=== PATIENT | male | born 1945 | race African-American/Black ===

== ENCOUNTER 2017-09-26 07:40 | Inpatient (IN) | payer MEDICARE, BC ==
[~2017-09-26] VITALS: Ht 175.3 cm; Wt 82.8 kg
[2017-09-26] MEDS ORDERED: MORPHINE SULFATE INJ 4 MG/ML INJ IV STA (07:41)
[2017-09-26] MEDS ORDERED: ONDANSETRON HCL INJ 2 MG/ML VIAL IV STA ×2 (07:41)
[2017-09-26] MEDS ORDERED: PANTOPRAZOLE 40 MG 10ML VIAL IV STA (07:41)
[2017-09-26] MEDS ORDERED: SODIUM CHLORIDE 0.9% 1000ML 1,000 ML IV STA (07:41)
[2017-09-26] MEDS ORDERED: ASPIRIN 81 MG CHEW TAB PO ONE (07:45)
[2017-09-26 08:13] LABS: BASOPHILS % 0.1 % (0.0-1.0); EOSINOPHILS % 0.1 % (0.0-6.0); HEMATOCRIT 36.6 % (38.2-49.6); HEMOGLOBIN 12.5 g/dL (14.0-18.0); LYMPHOCYTES # (AUTO) 0.8 (1.0-3.2); LYMPHOCYTES % 4.8 % (18.0-39.1); MEAN CORPUSCULAR HGB CONC 34.2 g/dL (31-35); MONOCYTES # (AUTO) 0.9 (0.2-0.8); MONOCYTES % 5.7 % (4.4-11.3); NEUTROPHILS # (AUTO) 14.1 (2.1-6.9); NEUTROPHILS % 88.9 % (38.7-80.0); PLATELET COUNT 263 x10e3/uL (140-360); RED BLOOD COUNT 4.16 x10e6/uL (4.3-5.7); RED CELL DISTRIBUTION WIDTH 13.1 % (11.7-14.4)
[2017-09-26 08:25] LABS: INR 1.14; PARTIAL THROMBOPLASTIN TIME 22.4 seconds (23.8-35.5); PROTHROMBIN TIME 13.7 seconds (11.9-14.5)
[2017-09-26 08:34] LABS: ALBUMIN 4.4 g/dL (3.5-5.0); ALBUMIN/GLOBULIN RATIO 1.4 (0.8-2.0); ANION GAP 17.2 mmol/L (8-16); CREATININE, SERUM 1.96 mg/dL (0.72-1.25); POTASSIUM 4.2 mmol/L (3.5-5.1)
[2017-09-26 08:40] LABS: CREATINE KINASE MB 4.8 ng/mL (0-5.0)
[2017-09-26] MEDS ORDERED: DIATRIZOATE MEGL/DIATRIZOA SOD 30 ML BTL PO ONE (08:43)
[2017-09-26] MEDS ORDERED: METRONIDAZOLE 500MG/NS 100ML 100 ML IV STA (08:46)
--- NOTE | 2017-09-26 08:47 | Diagnostic Imaging Report ---
PROCEDURE: CHEST SINGLE (PORTABLE) COMPARISON: None. INDICATIONS: VOMITING, ABDOMEN PAIN FINDINGS: LUNGS: No consolidations or edema. PLEURA: No effusions or pneumothorax. HEART \T\ MEDIASTINUM: The heart is within normal size-limits. BONES \T\ SOFT TISSUES: No acute findings. No free air beneath the diaphragms. CONCLUSION: No acute thoracic abnormality. Rod Murillo D.O. Dictated by: Rod Murillo D.O. on 09/26/2017 at 8:52 Electronically approved by: Rod Murillo D.O. on 09/26/2017 at 8:52
[2017-09-26] MEDS: CEFEPIME HCL 1 GM VIAL IV SCH ×2 (09:05→21:00)
[2017-09-26 09:27] LABS: CLARITY,URINE CLEAR (CLEAR); COLOR,URINE YELLOW (YELLOW); LEUKOCYTE ESTERASE ,URINE NEGATIVE (NEGATIVE); NITRITE,URINE NEGATIVE (NEGATIVE); PROTEIN,URINE DIPSTICK NEGATIVE (NEGATIVE)
[2017-09-26 09:28] LABS: BILIRUBIN,URINE NEGATIVE (NEGATIVE); KETONES,URINE NEGATIVE (NEGATIVE); URINE UROBILINOGEN 0.2 mg/dL (0.2 - 1)
[2017-09-26 09:40] LABS: EPITHELIAL CELLS,URINE RARE /LPF
--- NOTE | 2017-09-26 10:08 | Diagnostic Imaging Report ---
PROCEDURE: CT ABDOMEN AND PELVIS WITH CONTRAST TECHNIQUE: The abdomen and pelvis were scanned utilizing a multidetector helical scanner from the diaphragm to the lesser trochanter after the IV administration of 100 cc of Isovue 370 and the oral administration of water. Coronal and sagittal multiplanar reformations were obtained. DLP: 494.07 mGy-cm COMPARISON: None. INDICATIONS: UMBILICAL PAIN AND VOMITING FINDINGS: LOWER THORAX: Normal. HEPATOBILIARY: No focal hepatic lesions. No biliary ductal dilatation. The gallbladder is absent. SPLEEN: No splenomegaly. PANCREAS: No focal masses or ductal dilatation. ADRENALS: No adrenal nodules. KIDNEYS/URETERS: No hydronephrosis, stones, or solid mass lesions. There is a 2.1 cm right upper pole renal cyst. PELVIC ORGANS/BLADDER: Unremarkable. PERITONEUM / RETROPERITONEUM: No free air or fluid. LYMPH NODES: No lymphadenopathy. VESSELS: Mild atherosclerotic vascular calcification. All of the visceral vessels are patent. GI TRACT: Small bowel distention with a bilateral inguinal hernia with loops of bowel present within each scrotal sac. The largest is on the left side. BONES AND SOFT TISSUES: Disc space narrowing at L3-L4 and L4-L5. IMPRESSION: 1. Bilateral inguinal hernias with loops of small bowel within each hernia sac. 2. Left hernia is larger than the right with significant amount of small bowel present within it. 3. Normal appearing terminal ileum and appendix. 4. Small bowel obstruction resulting from the inguinal hernias. Rod Murillo D.O. Dictated by: Rod Murillo D.O. on 09/26/2017 at 10:13 Electronically approved by: Rod Murillo D.O. on 09/26/2017 at 10:13
[2017-09-26] MEDS ORDERED: SODIUM CHLORIDE 0.9% 1000ML 1,000 ML IV SCH (11:20)
[2017-09-26] MEDS ORDERED: SODIUM CHLORIDE 0.9% 50ML 50 ML ONE (11:26)
[2017-09-26] MEDS ORDERED: IOPAMIDOL 370 MG/ML 200 ML INFUS..BTL INJ ONE (11:26)
[2017-09-26 14:20] VITALS: BP 152/74
[2017-09-26] MEDS ORDERED: PRAVASTATIN SOD40 MG PO (15:25)
[2017-09-26] MEDS ORDERED: AMLODIPINE BESYL5 MG PO (15:25)
[2017-09-26] MEDS ORDERED: LOSARTAN POTAS100 MG PO (15:25)
[2017-09-26] MEDS ORDERED: PIOGLITAZONE HC45 MG PO (15:25)
[2017-09-26] MEDS ORDERED: LEVOTHYROXINE150 MCG PO (15:25)
[2017-09-26] MEDS ORDERED: GLIMEPIRIDE2 MG PO (15:25)
[2017-09-26] MEDS ORDERED: HYDRALAZINE HCL 10 MG TAB PO PRN (15:30)
[2017-09-26] MEDS ORDERED: DEXTROSE 50% SYRINGE 50 ML IV PRN (15:30)
[2017-09-26] MEDS: DEXTROSE 5%/0.45% SOD CHL 1,000 ML IV SCH (15:43)
[2017-09-26 16:02] VITALS: BP 136/65
[2017-09-26] MEDS: INSULIN REGULAR, HUMAN 100 UNIT/1 ML 3ML VIAL SQ SCH ×2 (16:30→20:59)
[2017-09-26] MEDS: MORPHINE SULFATE 2 MG/ML SYR IV PRN (16:55)
--- NOTE | 2017-09-26 18:56 | History and Physical ---
CHIEF COMPLAINT: This 72-year-old male comes in with abdominal pain. HISTORY OF PRESENTING ILLNESS: This is Mr. Vásquez, who has a history of diabetes mellitus, hypertension and hyperlipidemia, was in usual state of health until about a week ago the patient developed abdominal pain which was more inguinal, did notice some bulging in the abdominal area but did not make much of it, but a day ago the patient's abdominal pain started to be intense and nonradiating, associated with nausea, and the patient localized the pain to the periumbilical area and also to the inguinal area. The patient came into the emergency room, was admitted for an incarcerated inguinal hernia. PAST MEDICAL HISTORY: As mentioned above. History of hypertension, history of hyperlipidemia, history of diabetes mellitus. MEDICINES HE TAKES AT HOME: Amlodipine besylate 5 mg daily. Glimepiride 2 mg twice a day. Levothyroxine 150 mcg tablets daily. Losartan 100 mg tablets daily. Pioglitazone 45 mg tablets daily. Lovastatin 40 mg daily. PAST SURGICAL HISTORY: History of a right-sided cholecystectomy and open ok. SOCIAL HISTORY: No ETOH. No IV drug abuse. REVIEW OF SYSTEMS: No chest pain. No shortness of breath. Positive for nausea, no vomiting, no diarrhea. No constipation, no rectal bleeding. No hematochezia, no hematemesis. No blurry vision. No black stools, no bloody stools. No dizziness, no headache. No depression, anxiety. No anorexia. Positive for abdominal pain as mentioned above. INCOMPLETE REPORT Job#: [id number] EV
[2017-09-26 21:07] VITALS: BP 124/60
[2017-09-26] MEDS: ONDANSETRON HCL INJ 2 MG/ML VIAL IV PRN (21:30)
[2017-09-27] VITALS (7 sets, daily range): BP systolic 127–169; BP diastolic 60–81
[2017-09-27] MEDS: DEXTROSE 5%/0.45% SOD CHL 1,000 ML IV SCH (00:43)
[2017-09-27] MEDS: MORPHINE SULFATE 2 MG/ML SYR IV PRN ×2 (01:39→11:00)
[2017-09-27 05:20] LABS: BASOPHILS % 0.2 % (0.0-1.0); EOSINOPHILS % 0.2 % (0.0-6.0); HEMOGLOBIN 11.1 g/dL (14.0-18.0); LYMPHOCYTES # (AUTO) 0.5 (1.0-3.2); LYMPHOCYTES % 11.4 % (18.0-39.1); MEAN CORPUSCULAR HEMOGLOBIN 30.2 pg (28-32); MEAN CORPUSCULAR HGB CONC 33.6 g/dL (31-35); MEAN CORPUSCULAR VOLUME 89.7 fL (81-99); MONOCYTES # (AUTO) 0.8 (0.2-0.8); MONOCYTES % 16.1 % (4.4-11.3); NEUTROPHILS # (AUTO) 3.4 (2.1-6.9); NEUTROPHILS % 71.9 % (38.7-80.0); PLATELET COUNT 197 x10e3/uL (140-360); RED BLOOD COUNT 3.68 x10e6/uL (4.3-5.7); RED CELL DISTRIBUTION WIDTH 13.3 % (11.7-14.4)
[2017-09-27 05:48] LABS: ANION GAP 13.7 mmol/L (8-16); CALCIUM 8.6 mg/dL (8.4-10.2); CREATININE, SERUM 1.57 mg/dL (0.72-1.25); MAGNESIUM 1.7 MG/DL (1.3-2.1); POTASSIUM 4.7 mmol/L (3.5-5.1)
[2017-09-27] MEDS ORDERED: NON-FORMULARY MEDICATION (Levothyroxine Sodium 150 MCG) PO SCH (06:00)
[2017-09-27] MEDS: LEVOTHYROXINE SODIUM 75 MCG TAB PO SCH (06:14)
[2017-09-27] MEDS: INSULIN REGULAR, HUMAN 100 UNIT/1 ML 3ML VIAL SQ SCH ×4 (07:30→21:00)
[2017-09-27] MEDS: SODIUM CHLORIDE 0.9% 1000ML 1,000 ML IV SCH ×3 (07:47→23:43)
[2017-09-27] MEDS: CEFEPIME HCL 1 GM VIAL IV SCH (08:56)
[2017-09-27 09:06] LABS: BAND NEUTROPHILS % (MANUAL) 13 %; LYMPHOCYTES % (MANUAL) 16 % (19-48); MONOCYTES % (MANUAL) 14 % (3.4-9.0); NEUTROPHILS % (MANUAL) 56 % (40-74)
[2017-09-27 09:09] LABS: ANISOCYTOSIS SLIGHT; PLATELET ESTIMATE ADEQUATE; PLATELET MORPHOLOGY COMMENT FEW LARGE; RBC MORPHOLOGY COMMENT NORMAL
[2017-09-27] MEDS: ONDANSETRON HCL INJ 2 MG/ML VIAL IV PRN (11:00)
[2017-09-27] MEDS ORDERED: BUPIVACAINE 0.25%/EPI 30ML SDV INJ ONE (13:44)
[2017-09-27] MEDS ORDERED: HYDROGEN PEROXIDE 120 ML BTL ONE (13:44)
[2017-09-27] MEDS ORDERED: MIDAZOLAM HCL 2 MG/2 ML VIAL ONE (14:21)
[2017-09-27] MEDS ORDERED: FENTANYL CITRATE/PF 100MCG/2 ML INJ ONE (14:21)
[2017-09-27] MEDS ORDERED: BACITRACIN 50,000 UNIT VIAL ONE ×2 (14:58→16:41)
[2017-09-27] MEDS ORDERED: MORPHINE SULFATE INJ 4 MG/ML INJ IV PRN (16:00)
[2017-09-27] MEDS ORDERED: BUPIVACAINE LIPOSOME/PF 266 MG/20 ML IJ ONE (17:26)
[2017-09-27] MEDS ORDERED: SEVOFLURANE INHAL SOLN 250 ML PEN BTL ONE (17:33)
[2017-09-27] MEDS ORDERED: ROCURONIUM BROMIDE 10 MG/ML 5ML VIAL ONE (17:33)
[2017-09-27] MEDS ORDERED: PROPOFOL IV EMULSION 10 MG/ML 20 ML VIAL ONE (17:33)
[2017-09-27] MEDS ORDERED: LABETALOL HCL 5 MG/ML 20ML VIAL ONE (17:33)
[2017-09-27] MEDS ORDERED: DEXAMETHASONE SOD PHOS INJ 4 MG/ML VIAL ONE (17:33)
[2017-09-27] MEDS ORDERED: CEFAZOLIN SOD 1 GM VIAL ONE (17:33)
[2017-09-27] MEDS ORDERED: NEOSTIGMINE 5 MG/5ML SYR ONE (17:33)
[2017-09-27] MEDS ORDERED: LIDOCAINE HCL 2% LOCAL INJ 5 ML SDV VIAL INJ ONE (17:33)
[2017-09-27] MEDS ORDERED: GLYCOPYRROLATE INJ 1MG/ 5 ML SYR ONE (17:33)
[2017-09-27] MEDS ORDERED: ONDANSETRON HCL INJ 2 MG/ML VIAL ONE (17:33)
[2017-09-27] MEDS ORDERED: HYDROMORPHONE 0.2MG/ML-SOD CHL 30ML PCA SYRINGE IV ONE (18:36)
[2017-09-27] MEDS ORDERED: HYDROMORPHONE 0.2MG/ML-SOD CHL 30ML PCA SYRINGE IV PRN (18:45)
[2017-09-27] MEDS ORDERED: NALOXONE HCL INJ 0.4 MG/ML AMP IV PRN (18:45)
[2017-09-27] MEDS ORDERED: KETOROLAC TROMETHAMINE 30 MG/ML VIAL IV PRN (18:45)
[2017-09-27] MEDS ORDERED: DIPHENHYDRAMINE HCL INJ 50 MG/ML VIAL IM PRN (18:45)
--- NOTE | 2017-09-27 19:46 | Operative Report ---
DATE OF PROCEDURE: September 27, 2017 PREOPERATIVE DIAGNOSIS: Incarcerated left inguinal scrotal hernia with obstruction. POSTOPERATIVE DIAGNOSIS: Incarcerated left inguinal scrotal hernia with obstruction. PROCEDURES PERFORMED: 1. Exploration of the right groin. 2. Exploration of the left groin. 3. Left orchiectomy. 4. Small bowel resection with primary susannah [id number], end-to-end functional anastomosis. EQUITY RESEARCH ASSOCIATE: None. ESTIMATED BLOOD LOSS: Minimal. DRAINS: None. COMPLICATIONS: None. INDICATIONS AND FINDINGS: The patient is a 72-year-old male admitted through the emergency complaining of abdominal pain since the day prior to admission associated with vomiting. CT scan had revealed small bowel obstruction, secondary incarcerated left groin hernia. I saw the patient in the emergency room and I was able to reduce a loop of bowel that was causing the obstruction. However, at this point the patient did not have any more significant pain. He was stabilized and taken urgently to the operating room on 09/27/2017 for exploration of right groin and repair of incarcerated inguinal scrotal hernia. INTRAOPERATIVE FINDINGS: The patient had a large left inguinal scrotal hernia with incarceration of bowel loops within a scrotal sac. There was a segment of small bowel that was fibrotic, and even though it was viable, I was concerned about the possibility of an obstruction in the future with fibrosis and stricture formation and I decided to perform repair with resection and primary repair of the hernia. DESCRIPTION OF PROCEDURE: With the patient lying on the operating table in the supine position after administration of general endotracheal anesthesia, he was prepped and draped for left groin exploration and possible laparotomy. A preemptive anesthesia was given of 0. 25% Marcaine with epinephrine as an incisional nerve block. A transverse groin incision was made and deepened through skin, subcutaneous tissue until the hernia was identified. The hernia extended through the external ring all the way down to the bottom of the scrotum, and after we then incised the external oblique aponeurosis, transecting the external ring, we then applied pressure to the scrotum and then began the dissection and the reduction of the hernia by putting pressure on the scrotum and delivered the testicle into the operative field along with the hernia sac. At this point, we continued the dissection on the large hernia sac, which contained bowel loops so that we could then dissect it free from the adhesions to the preperitoneal space to be able to resect it. The cord was intimately attached to the sac and it was decided on this 72-year-old diabetic male to go ahead and proceed with an orchiectomy rather than risk the possibility of an orchitis with subsequent chronic pain and atrophy of the testicle both on the same side as well as the opposite side. I broke scrub and informed the patient's of the need for the orchiectomy and she agreed and gave me verbal consent. Yuliana was witness to this verbal consent. After we did that, we continued the dissection. We mobilized the sac as well as the testicle and then highly ligated the cord with 2-0 Vicryl and left it attached to the sac. Then we continued the dissection of the sac until we were able to mobilize the contents, opened the hernia sac, which was very large. We then began the dissection within the sac. We did not find any necrotic bowel. The loop of bowel which I reduced was most likely causing the obstruction upon admission which resolved with reduction. However, we found a loop of bowel that was intimately attached to the sac and as previously described on the operative findings it was fibrotic and appeared to have a strictured lumen. At this point, I decided to go ahead and resect that bowel and about 10 to 12 inches of small bowel was transected proximally and distally including the fibrotic segment in the middle, and then we obtained two proximal and distal segments that were suitable for anastomosis. Then we performed a [id number]-[id number], end-to-end functional anastomosis by firing the LAWANDA 75 stapler after we had cut both ends of the small bowel proximally and distally with a LAWANDA stapler also. After we did the [id number]-ci-[id number] anastomosis, functional end-to-end by firing of the LAWANDA 75 stapler to anastomose the two sides of the bowel, then we closed the rent by firing the TA 60 with the blue load. Then we reinforced the staple line with 3-0 silk. We closed the rent in the mesentery with running 2-0 Vicryl. After pronouncing the sponge and instrument counts were correct, we began the repair. We performed a Bassini type of repair by running an 0 Prolene beginning at the pubic tubercle all the way up to the internal ring and then run it back to itself and tied there, and then we began a 2nd layer beginning in the internal ring using the same 0 Prolene stitches imbricating the previous repair and then terminated the suture line at the internal ring where it had begun in the opposite direction of the previous repair. After we did that, then we closed the soft tissues in 2 layers to add some type of substance and to obliterate any space using a combination of 2-0 Vicryl, 0 chromic catgut and 2-0 Vicryl for the subcuticular planes and the skin was closed using susannah. A sterile dressing was applied. The patient tolerated the procedure well, taken to recovery room in stable condition. The was informed of intraoperative findings. Job#: [id number] VIDYA
[2017-09-27] MEDS: PANTOPRAZOLE 40 MG 10ML VIAL IV SCH (21:01)
[2017-09-27] MEDS: SODIUM CHLORIDE 0.9% 250ML IRRIG IR SCH (22:45)
[2017-09-27] MEDS: CEFOXITIN SOD 1 GM VIAL IV SCH (23:43)
[2017-09-28] VITALS (7 sets, daily range): BP systolic 131–160; BP diastolic 63–72
[2017-09-28] MEDS ORDERED: CEFOXITIN 1GM/ DEXTROSE 50ML 50 ML IV SCH
[2017-09-28] MEDS: SODIUM CHLORIDE 0.9% 250ML IRRIG IR SCH ×6 (02:45→22:45)
[2017-09-28] MEDS: LEVOTHYROXINE SODIUM 75 MCG TAB PO SCH (05:13)
[2017-09-28] MEDS: CEFOXITIN SOD 1 GM VIAL IV SCH ×4 (05:13→23:19)
[2017-09-28 05:55] LABS: BASOPHILS % 0.1 % (0.0-1.0); HEMATOCRIT 31.2 % (38.2-49.6); HEMOGLOBIN 10.2 g/dL (14.0-18.0); LYMPHOCYTES # (AUTO) 0.4 (1.0-3.2); LYMPHOCYTES % 6.4 % (18.0-39.1); MEAN CORPUSCULAR HEMOGLOBIN 29.7 pg (28-32); MEAN CORPUSCULAR HGB CONC 32.7 g/dL (31-35); MONOCYTES # (AUTO) 0.9 (0.2-0.8); MONOCYTES % 12.5 % (4.4-11.3); NEUTROPHILS # (AUTO) 5.6 (2.1-6.9); NEUTROPHILS % 80.6 % (38.7-80.0); PLATELET COUNT 205 x10e3/uL (140-360); RED BLOOD COUNT 3.43 x10e6/uL (4.3-5.7); RED CELL DISTRIBUTION WIDTH 13.2 % (11.7-14.4)
[2017-09-28 06:21] LABS: CREATININE, SERUM 1.66 mg/dL (0.72-1.25)
[2017-09-28] MEDS: INSULIN REGULAR, HUMAN 100 UNIT/1 ML 3ML VIAL SQ SCH ×4 (07:30→21:00)
[2017-09-28 08:40] LABS: BAND NEUTROPHILS % (MANUAL) 13 %; LYMPHOCYTES % (MANUAL) 4 % (19-48); MONOCYTES % (MANUAL) 8 % (3.4-9.0); NEUTROPHILS % (MANUAL) 69 % (40-74); PLATELET ESTIMATE ADEQUATE; PLATELET MORPHOLOGY COMMENT NORMAL; RBC MORPHOLOGY COMMENT NORMAL
[2017-09-28] MEDS: SODIUM CHLORIDE 0.9% 1000ML 1,000 ML IV SCH ×2 (13:15→20:46)
[2017-09-28] MEDS: PANTOPRAZOLE 40 MG 10ML VIAL IV SCH (17:48)
[2017-09-29] VITALS (7 sets, daily range): BP systolic 147–160; BP diastolic 66–74
[2017-09-29] MEDS: SODIUM CHLORIDE 0.9% 250ML IRRIG IR SCH ×6 (02:45→22:45)
[2017-09-29 05:13] LABS: BASOPHILS % 0.2 % (0.0-1.0); HEMATOCRIT 28.3 % (38.2-49.6); HEMOGLOBIN 9.4 g/dL (14.0-18.0); LYMPHOCYTES # (AUTO) 0.8 (1.0-3.2); LYMPHOCYTES % 8.7 % (18.0-39.1); MEAN CORPUSCULAR HEMOGLOBIN 29.7 pg (28-32); MEAN CORPUSCULAR HGB CONC 33.2 g/dL (31-35); MEAN CORPUSCULAR VOLUME 89.6 fL (81-99); MONOCYTES % 11.3 % (4.4-11.3); NEUTROPHILS % 79.1 % (38.7-80.0); PLATELET COUNT 196 x10e3/uL (140-360); RED BLOOD COUNT 3.16 x10e6/uL (4.3-5.7); RED CELL DISTRIBUTION WIDTH 13.3 % (11.7-14.4)
[2017-09-29 05:34] LABS: ANION GAP 11.4 mmol/L (8-16); CALCIUM 8.3 mg/dL (8.4-10.2); CREATININE, SERUM 1.53 mg/dL (0.72-1.25); POTASSIUM 4.4 mmol/L (3.5-5.1)
[2017-09-29] MEDS: CEFOXITIN SOD 1 GM VIAL IV SCH ×4 (05:35→23:03)
[2017-09-29] MEDS: LEVOTHYROXINE SODIUM 75 MCG TAB PO SCH (05:35)
[2017-09-29 06:25] LABS: LYMPHOCYTES % (MANUAL) 8 % (19-48); MONOCYTES % (MANUAL) 10 % (3.4-9.0); NEUTROPHILS % (MANUAL) 82 % (40-74); PLATELET ESTIMATE ADEQUATE; PLATELET MORPHOLOGY COMMENT NORMAL; RBC MORPHOLOGY COMMENT NORMAL
[2017-09-29] MEDS: INSULIN REGULAR, HUMAN 100 UNIT/1 ML 3ML VIAL SQ SCH ×4 (07:30→21:00)
[2017-09-29] MEDS: SODIUM CHLORIDE 0.9% 1000ML 1,000 ML IV SCH ×2 (09:15→23:00)
[2017-09-29] MEDS: PANTOPRAZOLE 40 MG 10ML VIAL IV SCH (18:45)
[2017-09-30] VITALS (7 sets, daily range): BP systolic 128–161; BP diastolic 61–74
[2017-09-30] MEDS: SODIUM CHLORIDE 0.9% 250ML IRRIG IR SCH ×3 (02:45→10:45)
[2017-09-30 05:56] LABS: BASOPHILS % 0.2 % (0.0-1.0); EOSINOPHILS % 0.2 % (0.0-6.0); HEMATOCRIT 25.9 % (38.2-49.6); HEMOGLOBIN 8.5 g/dL (14.0-18.0); LYMPHOCYTES # (AUTO) 0.8 (1.0-3.2); MEAN CORPUSCULAR HEMOGLOBIN 29.9 pg (28-32); MEAN CORPUSCULAR HGB CONC 32.8 g/dL (31-35); MEAN CORPUSCULAR VOLUME 91.2 fL (81-99); MONOCYTES # (AUTO) 0.9 (0.2-0.8); MONOCYTES % 9.9 % (4.4-11.3); NEUTROPHILS # (AUTO) 7.1 (2.1-6.9); NEUTROPHILS % 79.7 % (38.7-80.0); PLATELET COUNT 185 x10e3/uL (140-360); RED BLOOD COUNT 2.84 x10e6/uL (4.3-5.7); RED CELL DISTRIBUTION WIDTH 13.5 % (11.7-14.4)
[2017-09-30] MEDS: LEVOTHYROXINE SODIUM 75 MCG TAB PO SCH (06:00)
[2017-09-30] MEDS: CEFOXITIN SOD 1 GM VIAL IV SCH ×4 (06:00→23:02)
[2017-09-30 06:12] LABS: ANION GAP 13.2 mmol/L (8-16); CALCIUM 8.7 mg/dL (8.4-10.2); CREATININE, SERUM 1.58 mg/dL (0.72-1.25); POTASSIUM 4.2 mmol/L (3.5-5.1)
[2017-09-30] MEDS: INSULIN REGULAR, HUMAN 100 UNIT/1 ML 3ML VIAL SQ SCH ×4 (07:30→21:00)
[2017-09-30] MEDS ORDERED: HYDROMORPHONE 0.2MG/ML-SOD CHL 30ML PCA SYRINGE IV PRN (08:00)
[2017-09-30] MEDS: DEXTROSE 5%/0.45% SOD CHL 1,000 ML IV SCH ×3 (08:30→23:24)
[2017-09-30] MEDS ORDERED: HYDROCODONE/APAP 5MG-325MG TAB PO PRN (08:30)
[2017-09-30] MEDS ORDERED: POTASSIUM CHLORIDE 20 MEQ TAB CR PO ONE ×2 (11:30→13:30)
[2017-09-30] MEDS ORDERED: HYDROCODONE/APAP 7.5MG-325MG 1 EA TAB PO PRN (18:15)
[2017-09-30] MEDS: PANTOPRAZOLE 40 MG 10ML VIAL IV SCH (18:45)
[2017-09-30] MEDS: HYDROMORPHONE 1MG/1ML INJ IV PRN (21:34)
[2017-09-30] MEDS ORDERED: LEVOTHYROXINE SODIUM 100 MCG TAB PO ONE (21:45)
[2017-10-01] VITALS (8 sets, daily range): BP systolic 134–166; BP diastolic 60–77
[2017-10-01] MEDS: LEVOTHYROXINE SODIUM 75 MCG TAB PO SCH (05:04)
[2017-10-01] MEDS: CEFOXITIN SOD 1 GM VIAL IV SCH ×3 (05:04→17:48)
[2017-10-01 06:00] LABS: BASOPHILS % 0.4 % (0.0-1.0); EOSINOPHILS # (AUTO) 0.1 (0.0-0.4); EOSINOPHILS % 0.8 % (0.0-6.0); HEMATOCRIT 26.6 % (38.2-49.6); HEMOGLOBIN 8.7 g/dL (14.0-18.0); LYMPHOCYTES # (AUTO) 0.9 (1.0-3.2); LYMPHOCYTES % 10.9 % (18.0-39.1); MEAN CORPUSCULAR HEMOGLOBIN 29.7 pg (28-32); MEAN CORPUSCULAR HGB CONC 32.7 g/dL (31-35); MEAN CORPUSCULAR VOLUME 90.8 fL (81-99); NEUTROPHILS # (AUTO) 6.2 (2.1-6.9); NEUTROPHILS % 74.4 % (38.7-80.0); PLATELET COUNT 177 x10e3/uL (140-360); RED BLOOD COUNT 2.93 x10e6/uL (4.3-5.7); RED CELL DISTRIBUTION WIDTH 13.4 % (11.7-14.4)
[2017-10-01 06:19] LABS: ANION GAP 11.1 mmol/L (8-16); CALCIUM 8.6 mg/dL (8.4-10.2); CREATININE, SERUM 1.8 mg/dL (0.72-1.25); POTASSIUM 4.1 mmol/L (3.5-5.1)
[2017-10-01 06:38] LABS: CALCIUM IONIZED 1.2 mmol/L (1.09-1.30)
[2017-10-01 06:59] LABS: MAGNESIUM 1.7 MG/DL (1.3-2.1)
[2017-10-01] MEDS: INSULIN REGULAR, HUMAN 100 UNIT/1 ML 3ML VIAL SQ SCH ×4 (07:30→20:54)
[2017-10-01] MEDS: LOSARTAN POTASSIUM 100 MG TAB PO SCH (08:33)
[2017-10-01] MEDS: PIOGLITAZONE HCL 15 MG TAB PO SCH (08:33)
[2017-10-01] MEDS: GLIMEPIRIDE 2 MG TAB PO SCH ×2 (08:33→16:30)
[2017-10-01] MEDS: AMLODIPINE BESYLATE 5 MG TAB PO SCH (08:34)
[2017-10-01] MEDS: HYDROMORPHONE 1MG/1ML INJ IV PRN ×2 (09:51→18:41)
[2017-10-01] MEDS: DEXTROSE 5%/0.45% SOD CHL 1,000 ML IV SCH (10:30)
[2017-10-01] MEDS: HYDRALAZINE HCL 20 MG/ML VIAL IV PRN (16:30)
[2017-10-01] MEDS: PANTOPRAZOLE 40 MG 10ML VIAL IV SCH (17:48)
[2017-10-01] MEDS: SODIUM CHLORIDE 0.45% 1,000 ML IV SCH (20:53)
[2017-10-01] MEDS: SIMVASTATIN 20 MG TAB PO SCH (20:54)
[2017-10-01] MEDS: ONDANSETRON HCL INJ 2 MG/ML VIAL IV PRN (21:46)
[2017-10-02] VITALS (7 sets, daily range): BP systolic 120–159; BP diastolic 77–89
[2017-10-02] MEDS: HYDROMORPHONE 1MG/1ML INJ IV PRN (00:58)
[2017-10-02] MEDS: CEFOXITIN SOD 1 GM VIAL IV SCH ×5 (05:27→23:46)
[2017-10-02] MEDS: LEVOTHYROXINE SODIUM 75 MCG TAB PO SCH (05:27)
[2017-10-02] MEDS: ONDANSETRON HCL INJ 2 MG/ML VIAL IV PRN ×3 (05:41→16:43)
[2017-10-02] MEDS: INSULIN REGULAR, HUMAN 100 UNIT/1 ML 3ML VIAL SQ SCH ×4 (07:30→21:19)
[2017-10-02] MEDS: GLIMEPIRIDE 2 MG TAB PO SCH ×2 (07:46→16:43)
[2017-10-02] MEDS: PIOGLITAZONE HCL 15 MG TAB PO SCH (09:34)
[2017-10-02] MEDS: LOSARTAN POTASSIUM 100 MG TAB PO SCH (09:34)
[2017-10-02] MEDS: AMLODIPINE BESYLATE 5 MG TAB PO SCH (09:34)
[2017-10-02] MEDS: SODIUM CHLORIDE 0.45% 1,000 ML IV SCH (12:31)
[2017-10-02] MEDS: PANTOPRAZOLE 40 MG 10ML VIAL IV SCH (17:26)
[2017-10-02] MEDS: DEXTROSE 5%/0.45% SOD CHL 1,000 ML IV SCH (18:50)
[2017-10-02 18:54] LABS: BASOPHILS % 0.2 % (0.0-1.0); EOSINOPHILS % 0.1 % (0.0-6.0); HEMATOCRIT 32.9 % (38.2-49.6); HEMOGLOBIN 11.1 g/dL (14.0-18.0); LYMPHOCYTES # (AUTO) 0.8 (1.0-3.2); LYMPHOCYTES % 6.2 % (18.0-39.1); MEAN CORPUSCULAR HEMOGLOBIN 29.8 pg (28-32); MEAN CORPUSCULAR HGB CONC 33.7 g/dL (31-35); MEAN CORPUSCULAR VOLUME 88.2 fL (81-99); MONOCYTES # (AUTO) 0.9 (0.2-0.8); MONOCYTES % 7.3 % (4.4-11.3); NEUTROPHILS # (AUTO) 10.8 (2.1-6.9); NEUTROPHILS % 84.3 % (38.7-80.0); PLATELET COUNT 250 x10e3/uL (140-360); RED BLOOD COUNT 3.73 x10e6/uL (4.3-5.7); RED CELL DISTRIBUTION WIDTH 13.2 % (11.7-14.4)
[2017-10-02 19:15] LABS: ALBUMIN/GLOBULIN RATIO 0.8 (0.8-2.0); ANION GAP 19.8 mmol/L (8-16); CREATININE, SERUM 1.85 mg/dL (0.72-1.25); POTASSIUM 3.8 mmol/L (3.5-5.1)
--- NOTE | 2017-10-02 19:23 | Diagnostic Imaging Report ---
EXAM: ABDOMEN COMP INCL UPR or DECUB, DATE: 10/02/2017 6:14 PM INDICATION: Vomiting. Recent hernia repair/bowel resection. COMPARISON: None. Correlation with CT abdomen dated 09/26/2017. FINDINGS: LINES/TUBES: None BOWEL PATTERN: Multiple dilated small bowel loops may represent postobstructive ileus, however, obstruction cannot be excluded. SOFT TISSUES: No abnormal calcifications. No mass effect. Cholecystectomy clips. Battery pack projected on the lateral lower right hemithorax. LUNG BASES: Patchy density in the left lung base suggestive of subsegmental atelectasis. BONES: No acute findings. Surgical skin susannah projected on the left inguinal region. Surgical drain projected on the left inguinal and scrotal regions. IMPRESSION: Multiple dilated small bowel loops may represent postobstructive ileus, however, obstruction cannot be excluded. Recommend follow-up KUB to resolution. Signed by: Dr. Arun Mckeon M.D. on 10/02/2017 7:19 PM
[2017-10-02] MEDS: SIMVASTATIN 20 MG TAB PO SCH (21:00)
[2017-10-02] MEDS: BISACODYL 10 MG SUPP PR SCH (21:17)
[2017-10-03] VITALS (8 sets, daily range): BP systolic 127–171; BP diastolic 73–86
[2017-10-03] MEDS: SODIUM CHLORIDE 0.45% 1,000 ML IV SCH (00:06)
[2017-10-03] MEDS: DEXTROSE 5%/0.45% SOD CHL 1,000 ML IV SCH ×4 (02:32→23:51)
[2017-10-03 05:51] LABS: BASOPHILS % 0.3 % (0.0-1.0); EOSINOPHILS # (AUTO) 0.1 (0.0-0.4); EOSINOPHILS % 0.7 % (0.0-6.0); HEMATOCRIT 27.1 % (38.2-49.6); HEMOGLOBIN 9.3 g/dL (14.0-18.0); LYMPHOCYTES # (AUTO) 0.9 (1.0-3.2); LYMPHOCYTES % 9.9 % (18.0-39.1); MEAN CORPUSCULAR HGB CONC 34.3 g/dL (31-35); MEAN CORPUSCULAR VOLUME 87.4 fL (81-99); MONOCYTES # (AUTO) 0.9 (0.2-0.8); MONOCYTES % 9.2 % (4.4-11.3); NEUTROPHILS # (AUTO) 7.3 (2.1-6.9); NEUTROPHILS % 78.1 % (38.7-80.0); PLATELET COUNT 213 x10e3/uL (140-360); RED CELL DISTRIBUTION WIDTH 13.2 % (11.7-14.4)
[2017-10-03] MEDS: LEVOTHYROXINE SODIUM 75 MCG TAB PO SCH (06:00)
[2017-10-03 06:14] LABS: ALBUMIN 2.5 g/dL (3.5-5.0); ALBUMIN/GLOBULIN RATIO 0.9 (0.8-2.0); ANION GAP 11.4 mmol/L (8-16); CALCIUM 8.2 mg/dL (8.4-10.2); CREATININE, SERUM 1.65 mg/dL (0.72-1.25); MAGNESIUM 1.6 MG/DL (1.3-2.1); POTASSIUM 3.4 mmol/L (3.5-5.1)
[2017-10-03] MEDS ORDERED: DIATRIZOATE MEGL/DIATRIZOA SOD 30 ML BTL PO ONE (06:47)
[2017-10-03] MEDS: CEFOXITIN SOD 1 GM VIAL IV SCH ×4 (06:49→23:51)
[2017-10-03] MEDS: INSULIN REGULAR, HUMAN 100 UNIT/1 ML 3ML VIAL SQ SCH ×4 (07:30→21:09)
[2017-10-03] MEDS: GLIMEPIRIDE 2 MG TAB PO SCH ×2 (08:00→17:00)
[2017-10-03] MEDS: PIOGLITAZONE HCL 15 MG TAB PO SCH (09:00)
[2017-10-03] MEDS: AMLODIPINE BESYLATE 5 MG TAB PO SCH (09:00)
[2017-10-03] MEDS: BISACODYL 10 MG SUPP PR SCH ×2 (09:00→21:00)
[2017-10-03] MEDS: LOSARTAN POTASSIUM 100 MG TAB PO SCH (09:00)
[2017-10-03] MEDS ORDERED: IOPAMIDOL 370 MG/ML 200 ML INFUS..BTL INJ ONE (09:11)
[2017-10-03] MEDS ORDERED: SODIUM CHLORIDE 0.9% 50ML 50 ML ONE (09:11)
[2017-10-03] MEDS ORDERED: POTASSIUM CHLORIDE 20MEQ/100ML 200 ML IV ONE (11:30)
--- NOTE | 2017-10-03 11:45 | Diagnostic Imaging Report ---
PROCEDURE: CT ABDOMEN AND PELVIS WITH CONTRAST TECHNIQUE: The abdomen and pelvis were scanned utilizing a multidetector helical scanner from the diaphragm to the lesser trochanter after the IV administration of 100 cc of Isovue 370 and the oral administration of Gastroview. Coronal and sagittal multiplanar reformations were obtained. DLP: 430.9 mGy-cm COMPARISON: CT 09/26/2017 INDICATIONS: NAUSEA, VOMITING FINDINGS: LOWER THORAX: Trace pleural effusions with adjacent atelectasis. HEPATOBILIARY: Stable 0.6 cm hyperattenuating lesion in the right hepatic lobe which may represent a flash filling hemangioma. Cholecystectomy. No biliary ductal dilatation. PANCREAS: No focal masses or ductal dilatation. ADRENALS: No adrenal nodules. KIDNEYS/URETERS: No hydronephrosis, stones, or solid mass lesions. Right renal 2.5 cm cyst. PELVIC ORGANS/BLADDER Ruiz catheter in place. Surgical drain in the region of the left perineum and anterior pelvis likely related to inguinal hernia repair. Persistent direct right inguinal hernia containing small bowel. PERITONEUM / RETROPERITONEUM: No free air or fluid. LYMPH NODES: No lymphadenopathy. VESSELS: Unremarkable. GI TRACT: Partial small bowel resection. Multiple loops of dilated fluid filled small bowel are noted with transition point (series 2 image 53 and 58) located in the mid abdomen near the anastomosis which may be related to an adhesion. Bowel wall remains enhancing without pneumatosis. Nasogastric tube with tip in the gastric fundus. No distention or wall thickening. BONES AND SOFT TISSUES: Degenerative changes of the spine, worse at L3-L4 and L4-L5. Drainage catheter as above. IMPRESSION: 1. Interval repair of a left inguinal hernia causing small bowel obstruction. Dilated fluid filled small bowel loops with transition in the mid abdomen, concerning for small bowel obstruction. 2. Persistent direct right inguinal hernia containing small bowel. Dictated by: Breezy Butt M.D. on 10/03/2017 at 11:51 Electronically approved by: Breezy Butt M.D. on 10/03/2017 at 11:51
--- NOTE | 2017-10-03 15:16 | Diagnostic Imaging Report ---
PROCEDURE:X-RAY ABDOMEN - KUB COMPARISON:Same day CT. INDICATIONS:POST SURGERY RULE OUT ILIEUS FINDINGS: Multiple air-filled dilated loops of small bowel measuring up to 4 cm in diameter, slightly decreased compared to [facility] developer radiograph of same day CT. Stool and gas are present within the large bowel. Enteric contrast noted projecting within bowel loops in the pelvis which may be within the small bowel. No calcifications project over the renal silhouettes or expected course of ureters. Skin susannah overlie the left groin. Cholecystectomy clips project over the right upper quadrant. Nasogastric tube tip and sidehole overlie the stomach. CONCLUSION: Slightly improvement in the dilated loops of small bowel which may reflect ileus or small bowel obstruction. Dictated by: Breezy Butt M.D. on 10/03/2017 at 15:22 Electronically approved by: Breezy Butt M.D. on 10/03/2017 at 15:22
[2017-10-03] MEDS: PANTOPRAZOLE 40 MG 10ML VIAL IV SCH (18:45)
[2017-10-03] MEDS: SIMVASTATIN 20 MG TAB PO SCH (21:00)
[2017-10-03] MEDS: HYDRALAZINE HCL 20 MG/ML VIAL IV PRN (21:08)
[2017-10-04] VITALS (7 sets, daily range): BP systolic 134–167; BP diastolic 62–82
[2017-10-04 05:31] LABS: BASOPHILS % 0.2 % (0.0-1.0); EOSINOPHILS # (AUTO) 0.1 (0.0-0.4); EOSINOPHILS % 1.3 % (0.0-6.0); HEMATOCRIT 26.2 % (38.2-49.6); HEMOGLOBIN 9.3 g/dL (14.0-18.0); LYMPHOCYTES # (AUTO) 1.2 (1.0-3.2); LYMPHOCYTES % 14.1 % (18.0-39.1); MEAN CORPUSCULAR HEMOGLOBIN 30.4 pg (28-32); MEAN CORPUSCULAR HGB CONC 35.5 g/dL (31-35); MEAN CORPUSCULAR VOLUME 85.6 fL (81-99); MONOCYTES # (AUTO) 0.7 (0.2-0.8); MONOCYTES % 8.1 % (4.4-11.3); NEUTROPHILS # (AUTO) 6.4 (2.1-6.9); NEUTROPHILS % 74.3 % (38.7-80.0); PLATELET COUNT 220 x10e3/uL (140-360); RED BLOOD COUNT 3.06 x10e6/uL (4.3-5.7); RED CELL DISTRIBUTION WIDTH 13.2 % (11.7-14.4)
[2017-10-04] MEDS: CEFOXITIN SOD 1 GM VIAL IV SCH ×4 (05:47→23:16)
[2017-10-04] MEDS: LEVOTHYROXINE SODIUM 75 MCG TAB PO SCH (05:48)
[2017-10-04 05:54] LABS: ALBUMIN 2.6 g/dL (3.5-5.0); ALBUMIN/GLOBULIN RATIO 0.9 (0.8-2.0); ANION GAP 14.2 mmol/L (8-16); CALCIUM 8.1 mg/dL (8.4-10.2); CREATININE, SERUM 1.58 mg/dL (0.72-1.25); POTASSIUM 3.2 mmol/L (3.5-5.1)
--- NOTE | 2017-10-04 06:41 | Diagnostic Imaging Report ---
EXAM: ABDOMEN COMP INCL UPR or DECUB INDICATION: Ileus COMPARISON: October 03, 2017 FINDINGS: LINES/TUBES: Nasogastric tube tip in the fundus of the stomach. BOWEL PATTERN: Persistent stacked dilated small bowel loops. Air is seen throughout the colon. SOFT TISSUES: Surgical clips right upper quadrant of the abdomen and surgical susannah seen over the left lower pelvis. LUNG BASES: Not included BONES: No acute findings. IMPRESSION: Persistent ileus versus partial small bowel obstruction. Signed by: Dr. Molly Hunt M.D. on 10/04/2017 6:37 AM
[2017-10-04] MEDS: DEXTROSE 5%/0.45% SOD CHL 1,000 ML IV SCH ×3 (07:00→10:50)
[2017-10-04] MEDS: INSULIN REGULAR, HUMAN 100 UNIT/1 ML 3ML VIAL SQ SCH ×4 (07:30→21:10)
[2017-10-04] MEDS: GLIMEPIRIDE 2 MG TAB PO SCH ×2 (08:00→17:00)
[2017-10-04] MEDS ORDERED: POTASSIUM CHLORIDE 20MEQ/100ML 200 ML IV ONE (08:00)
[2017-10-04] MEDS: LOSARTAN POTASSIUM 100 MG TAB PO SCH (09:00)
[2017-10-04] MEDS: AMLODIPINE BESYLATE 5 MG TAB PO SCH (09:00)
[2017-10-04] MEDS: PIOGLITAZONE HCL 15 MG TAB PO SCH (09:00)
[2017-10-04] MEDS: BISACODYL 10 MG SUPP PR SCH ×2 (09:00→21:00)
[2017-10-04] MEDS: PANTOPRAZOLE 40 MG 10ML VIAL IV SCH (18:28)
[2017-10-04] MEDS: SIMVASTATIN 20 MG TAB PO SCH (21:00)
[2017-10-05] VITALS (8 sets, daily range): BP systolic 133–169; BP diastolic 63–104
[2017-10-05] MEDS: DEXTROSE 5%/0.45% SOD CHL 1,000 ML IV SCH ×4 (00:19→19:45)
[2017-10-05 05:44] LABS: BASOPHILS % 0.3 % (0.0-1.0); EOSINOPHILS # (AUTO) 0.2 (0.0-0.4); EOSINOPHILS % 2.2 % (0.0-6.0); HEMATOCRIT 24.3 % (38.2-49.6); HEMOGLOBIN 8.5 g/dL (14.0-18.0); LYMPHOCYTES # (AUTO) 0.9 (1.0-3.2); LYMPHOCYTES % 10.4 % (18.0-39.1); MEAN CORPUSCULAR VOLUME 85.9 fL (81-99); MONOCYTES # (AUTO) 0.6 (0.2-0.8); MONOCYTES % 6.5 % (4.4-11.3); NEUTROPHILS % 79.4 % (38.7-80.0); PLATELET COUNT 217 x10e3/uL (140-360); RED BLOOD COUNT 2.83 x10e6/uL (4.3-5.7); RED CELL DISTRIBUTION WIDTH 13.2 % (11.7-14.4)
[2017-10-05] MEDS: LEVOTHYROXINE SODIUM 75 MCG TAB PO SCH (05:53)
[2017-10-05 06:04] LABS: ANION GAP 11.3 mmol/L (8-16); BLOOD UREA NITROGEN 6 mg/dL (7-26); BUN/CREATININE RATIO 4 (6-25); CALCIUM 7.9 mg/dL (8.4-10.2); CARBON DIOXIDE 23 mmol/L (22-29); CHLORIDE 109 mmol/L (98-107); CREATININE, SERUM 1.35 mg/dL (0.72-1.25); EST GLOMERULAR FILTRATION RATE > 60 ML/MIN (60-); GLUCOSE 153 mg/dL (74-118); POTASSIUM 3.3 mmol/L (3.5-5.1); SODIUM 140 mmol/L (136-145)
[2017-10-05] MEDS: INSULIN REGULAR, HUMAN 100 UNIT/1 ML 3ML VIAL SQ SCH ×4 (08:00→20:16)
[2017-10-05] MEDS ORDERED: POTASSIUM CHLORIDE 20MEQ/100ML 200 ML IV ONE (08:00)
[2017-10-05] MEDS: BISACODYL 10 MG SUPP PR SCH ×2 (09:00→20:22)
[2017-10-05] MEDS: PIOGLITAZONE HCL 15 MG TAB PO SCH (09:58)
[2017-10-05] MEDS: AMLODIPINE BESYLATE 5 MG TAB PO SCH (09:58)
[2017-10-05] MEDS: LOSARTAN POTASSIUM 100 MG TAB PO SCH (09:58)
[2017-10-05] MEDS: GLIMEPIRIDE 2 MG TAB PO SCH ×2 (09:58→17:09)
--- NOTE | 2017-10-05 12:27 | Diagnostic Imaging Report ---
EXAM: ABDOMEN COMP INCL UPR or DECUB, DATE: 10/05/2017 8:00 AM INDICATION: Rule out ileus COMPARISON: KUB 10/04/2017, CT 10/03/2017 FINDINGS: LINES/TUBES: NG tube overlies the stomach. BOWEL PATTERN: Persistent distended loops of small bowel. Decreased staggard air-fluid levels on upright view compared to KUB 10/04/2017. Enteric contrast seen within the small bowel on CT 10/03/2017 is currently within the colon. SOFT TISSUES: Surgical clips in the right upper quadrant and left hip. LUNG BASES: Grossly clear. BONES: No acute findings. IMPRESSION: Persistent distended loops of small bowel may represent ileus. Of note, contrast has passed from the small bowel into the colon. Signed by: DR. Breezy Butt MD on 10/05/2017 12:24 PM
[2017-10-05] MEDS: METOCLOPRAMIDE HCL 10 MG/2ML VIAL IV SCH ×2 (13:00→17:09)
[2017-10-05] MEDS: PANTOPRAZOLE 40 MG 10ML VIAL IV SCH (17:09)
[2017-10-05] MEDS ORDERED: METOCLOPRAMIDE HCL 10 MG/2ML VIAL IV SCH (18:00)
[2017-10-05] MEDS: SIMVASTATIN 20 MG TAB PO SCH (20:22)
[2017-10-06] VITALS (8 sets, daily range): BP systolic 133–162; BP diastolic 70–79
[2017-10-06] MEDS: METOCLOPRAMIDE HCL 10 MG/2ML VIAL IV SCH ×4 (01:00→17:55)
[2017-10-06] MEDS: DEXTROSE 5%/0.45% SOD CHL 1,000 ML IV SCH ×3 (05:58→16:48)
[2017-10-06] MEDS: LEVOTHYROXINE SODIUM 75 MCG TAB PO SCH (05:59)
[2017-10-06 08:16] LABS: BASOPHILS % 0.3 % (0.0-1.0); EOSINOPHILS # (AUTO) 0.2 (0.0-0.4); EOSINOPHILS % 1.9 % (0.0-6.0); HEMATOCRIT 27.3 % (38.2-49.6); HEMOGLOBIN 9.2 g/dL (14.0-18.0); LYMPHOCYTES % 9.4 % (18.0-39.1); MEAN CORPUSCULAR HEMOGLOBIN 29.6 pg (28-32); MEAN CORPUSCULAR HGB CONC 33.7 g/dL (31-35); MEAN CORPUSCULAR VOLUME 87.8 fL (81-99); MONOCYTES # (AUTO) 0.6 (0.2-0.8); MONOCYTES % 5.3 % (4.4-11.3); NEUTROPHILS # (AUTO) 8.9 (2.1-6.9); NEUTROPHILS % 81.7 % (38.7-80.0); PLATELET COUNT 284 x10e3/uL (140-360); RED BLOOD COUNT 3.11 x10e6/uL (4.3-5.7); RED CELL DISTRIBUTION WIDTH 13.3 % (11.7-14.4)
[2017-10-06] MEDS: GLIMEPIRIDE 2 MG TAB PO SCH ×2 (08:29→16:59)
[2017-10-06] MEDS: PIOGLITAZONE HCL 15 MG TAB PO SCH (08:29)
[2017-10-06] MEDS: BISACODYL 10 MG SUPP PR SCH ×2 (08:30→20:36)
[2017-10-06] MEDS: LOSARTAN POTASSIUM 100 MG TAB PO SCH (08:30)
[2017-10-06] MEDS: AMLODIPINE BESYLATE 5 MG TAB PO SCH (08:30)
[2017-10-06 08:35] LABS: ALBUMIN 2.7 g/dL (3.5-5.0); ALBUMIN/GLOBULIN RATIO 0.9 (0.8-2.0); ANION GAP 13.5 mmol/L (8-16); CALCIUM 8.5 mg/dL (8.4-10.2); CREATININE, SERUM 1.53 mg/dL (0.72-1.25); POTASSIUM 4.5 mmol/L (3.5-5.1)
[2017-10-06] MEDS: INSULIN REGULAR, HUMAN 100 UNIT/1 ML 3ML VIAL SQ SCH ×4 (10:05→20:34)
[2017-10-06] MEDS: PANTOPRAZOLE 40 MG 10ML VIAL IV SCH (16:59)
--- NOTE | 2017-10-06 19:29 | Consultation ---
DATE OF CONSULTATION: CARDIOLOGY CONSULTATION REASON FOR CONSULTATION: PVCs and V-tach. REQUESTING PHYSICIAN: Dr. Frias HISTORY OF PRESENT ILLNESS: Mr. Vásquez is a 72-year-old male with a pertinent past medical history of diabetes, hypertension, and hyperlipidemia, who states he has been doing well. However, last week, he started developing abdominal pain. For that reason, he came into the ER. He was found to have an incarcerated inguinal hernia for which he underwent surgery last week. However, he states he has been in the hospital for quite a while due to abdominal pain and distention. He is still under the care of Dr. Hudson, who performed his surgery. We were consulted to see this patient due to 6 beats of V-tach noted on EKG and also ongoing PVCs on telemetry. The patient denies any chest pain, shortness of breath, dizziness, syncope. He does report noticing an irregular heartbeat in the past. PAST MEDICAL HISTORY: As mentioned above, includes hypertension, hyperlipidemia and diabetes. PAST SURGICAL HISTORY: Includes right-sided cholecystectomy. SOCIAL HISTORY: He denies any alcohol use or any IV drug use or illicit drug use. REVIEW OF SYSTEMS: Negative, except as mentioned above. VITAL SIGNS: Temperature 97.9, pulse 63, respiratory rate 20, blood pressure 146/79, oxygen saturation 100% on room air. CARDIOVASCULAR MEDICATIONS 1. Losartan 100 mg p.o. daily. 2. Amlodipine 5 p.o. daily. 3. Simvastatin 20 mg p.o. at bedtime. 4. Hydralazine 10 q.4 h. IV p.r.n. LABS: WBC 10.90, hemoglobin 9.2, hematocrit 27.3, platelets 284. Sodium 140, potassium 4.5, BUN 5, creatinine 1.53, GFR 54. AST 21, ALT 47. Abdominal x-ray from yesterday with persistent distended loops of small bowel representing ileus. Of note, contrast has passed from the small bowel into the colon. TELEMETRY: Sinus rhythm with bundle-branch block. PHYSICAL EXAMINATION GENERAL: Alert and oriented times 3. Resting comfortably in bed. Does not appear to be in any acute distress. LUNGS: Clear to auscultation throughout. NECK: Supple. No JVD noted. CARDIOVASCULAR: Irregular rate and rhythm. Normal S1 and S2. ABDOMEN: Rounded and distended. Tender on palpation. Wearing an abdominal binder. LOWER EXTREMITIES: No edema, 2+ pedal pulses. IMPRESSION 1. Incarcerated inguinal hernia, status post surgery. 2. Abdominal distention with an ileus. 3. Hypertension. 4. Hyperlipidemia. 5. Diabetes mellitus. 6. Acute renal injury. 7. Frequent premature ventricular contractions. RECOMMENDATIONS: Maintain on telemetry at all times. Continue the above-listed cardiac medication. Initiate a low-dose beta charlene for now. Obtain echocardiogram. Consider possible ischemic evaluation as an outpatient once he has recovered from acute illness. Monitor closely. Thank you for this consultation and allowing us to participate in this patient's care. DICTATED BY: Heidy Barrett NP Job#: [id number]
[2017-10-06] MEDS: SIMVASTATIN 20 MG TAB PO SCH (20:42)
[2017-10-07] VITALS (7 sets, daily range): BP systolic 130–169; BP diastolic 60–78
[2017-10-07] MEDS: METOCLOPRAMIDE HCL 10 MG/2ML VIAL IV SCH ×4 (01:00→19:00)
[2017-10-07] MEDS: LEVOTHYROXINE SODIUM 75 MCG TAB PO SCH (06:00)
[2017-10-07] MEDS: DEXTROSE 5%/0.45% SOD CHL 1,000 ML IV SCH (06:40)
[2017-10-07] MEDS: INSULIN REGULAR, HUMAN 100 UNIT/1 ML 3ML VIAL SQ SCH ×4 (07:30→20:48)
[2017-10-07] MEDS: GLIMEPIRIDE 2 MG TAB PO SCH ×2 (08:00→17:00)
[2017-10-07] MEDS: AMLODIPINE BESYLATE 5 MG TAB PO SCH (09:00)
[2017-10-07] MEDS: PIOGLITAZONE HCL 15 MG TAB PO SCH (09:00)
[2017-10-07] MEDS: ATENOLOL 50 MG TAB PO SCH (09:00)
[2017-10-07] MEDS: BISACODYL 10 MG SUPP PR SCH ×2 (09:00→20:48)
[2017-10-07] MEDS: LOSARTAN POTASSIUM 100 MG TAB PO SCH (09:00)
--- NOTE | 2017-10-07 12:39 | Progress Note ---
DATE: CARDIOLOGY PROGRESS NOTE SUBJECTIVE: The patient is without any complaints today. He states he is feeling well. His bowels are moving. He has no abdominal pain. He denies any chest pain or shortness of breath or palpitations. OBJECTIVE VITAL SIGNS: Temperature 98.5, pulse 68, respiratory rate 20, blood pressure 169/74, oxygen saturation 96% on room air. CARDIOVASCULAR MEDICATIONS 1. Atenolol 25 mg p.o. daily. 2. Losartan 100 mg p.o. daily. 3. Amlodipine 5 p.o. daily. 4. Simvastatin 20 mg p.o. at night. 5. Hydralazine 10 mg q.4 h. p.r.n. for hypertension. LABS: No new labs today. Telemetry is sinus rhythm with infrequent PVCs. PHYSICAL EXAMINATION GENERAL: Alert and oriented times 3. Resting comfortably in bed. Does not appear to be in any acute distress. LUNGS: Clear to auscultation throughout. No wheezing. No rhonchi or crackles. NECK: Supple. No JVD noted. CARDIOVASCULAR: Regular rate and rhythm. Diastolic murmur present. ABDOMEN: Soft, mildly tender. Bowel sounds positive. EXTREMITIES: No edema. Two plus pedal pulses. IMPRESSION 1. Incarcerated inguinal hernia: Status post surgery. 2. Abdominal distention with ileus. 3. Hypertension. 4. Hyperlipidemia. 5. Diabetes mellitus. 6. [id number] renal injury. 7. Frequent premature ventricular contractions. RECOMMENDATIONS: Continue with the above-listed cardiac medications, including beta charlene. Continue to monitor PVCs for now. Echocardiogram awaiting completion. Consider ischemic evaluation as an outpatient after he recovers from this acute illness. Continue to monitor closely. Keep a close eye on blood pressure. DICTATED BY TONYA SANDERS NP Job#: [id number] MO
[2017-10-07] MEDS: PANTOPRAZOLE 40 MG 10ML VIAL IV SCH (17:18)
[2017-10-07] MEDS: SIMVASTATIN 20 MG TAB PO SCH (20:48)
[2017-10-08 00:25] VITALS: BP 125/56
[2017-10-08 05:14] VITALS: BP 125/59
[2017-10-08] MEDS: LEVOTHYROXINE SODIUM 75 MCG TAB PO SCH (05:16)
[2017-10-08] MEDS: INSULIN REGULAR, HUMAN 100 UNIT/1 ML 3ML VIAL SQ SCH (07:30)
[2017-10-08 07:55] VITALS: BP 144/66
[2017-10-08 07:57] VITALS: BP 144/66
[2017-10-08] MEDS: PIOGLITAZONE HCL 15 MG TAB PO SCH (08:18)
[2017-10-08] MEDS: LOSARTAN POTASSIUM 100 MG TAB PO SCH (08:18)
[2017-10-08] MEDS: AMLODIPINE BESYLATE 5 MG TAB PO SCH (08:18)
[2017-10-08] MEDS: GLIMEPIRIDE 2 MG TAB PO SCH (08:18)
[2017-10-08] MEDS: BISACODYL 10 MG SUPP PR SCH (08:19)
[2017-10-08] MEDS: ATENOLOL 50 MG TAB PO SCH (08:19)
[2017-10-08 11:33] VITALS: BP 145/67
[2017-10-08] MEDS ORDERED: ATENOLOL25 MG PO (11:39)
[2017-10-08] MEDS ORDERED: TYLENOL WITH C1 EACH PO (11:56)
== END 2017-10-08 13:13 | disposition home or self-care (01) | DRG 330 ==
LOC: ER 07:40 → ERHOLD 11:39 → MED/SURG3 14:16
PROVIDERS: ADMIT Family Medicine; ATTEND Family Medicine
PROC: 0VTB0ZZ Resection of Left Testis, Open Approach (ICD-10-PCS; 2017-09-27)
PROC: 0YQ60ZZ Repair Left Inguinal Region, Open Approach (ICD-10-PCS; 2017-09-27)
PROC: 0DB80ZZ Excision of Small Intestine, Open Approach (ICD-10-PCS; principal; 2017-09-27 14:04)
DX: K40.30 Unilateral inguinal hernia, with obstruction, without gangrene, not specified as recurrent (principal); I47.2 Ventricular tachycardia; N17.9 Acute kidney failure, unspecified; K56.7 Ileus, unspecified; E03.9 Hypothyroidism, unspecified; I12.9 Hypertensive chronic kidney disease with stage 1 through stage 4 chronic kidney disease, or unspecified chronic kidney disease; E11.22 Type 2 diabetes mellitus with diabetic chronic kidney disease; N18.3 Chronic kidney disease, stage 3 (moderate); Z79.84 Long term (current) use of oral hypoglycemic drugs; E78.5 Hyperlipidemia, unspecified; I49.3 Ventricular premature depolarization; D50.0 Iron deficiency anemia secondary to blood loss (chronic); E87.6 Hypokalemia
CPT/HCPCS: 36415; 71045; 74018; 74177; 80048; 80053; 81001; 82330; 82550; 82553; 82948; 83605; 83690; 83735; 84484; 85025; 85610; 85730; 88305; 88307; 93005; 93306; 96361; 97139; 99284; J0360; J0690; J0692; J0694; J1100; J1170; J1200; J2001; J2250; J2270; J2405; J2765; J3480; J7030; Q9967